=== PATIENT | male | born 1940 | race Caucasian/White ===

== ENCOUNTER → 2017-05-15 | Outpatient (CLI) | payer MEDICARE, BC ==
[~2017-05-15] MED LIST: ATOR10TA9 PO; COLC0.6T37 PO; DUTA0.5C PO; FLUT1DIS3 INH; GLIM1TAB PO; IBUP-1484 PO; INSU100I28 SQ-INSULIN; MONT10TA9 PO; RAMI5CAP PO; SITA1TAB PO; SITA1TAB5 PO
[2017-05-15 12:42] LABS: MICROSCOPIC NOT IND
[2017-05-15 12:44] LABS: CULTURE INDICATED? NO
[2017-05-15 12:52] LABS: ALANINE AMINOTRANSFERASE 30 U/L (12-78); ALBUMIN 3.6 g/dL (3.4-5.0); ANION GAP 9 mmol/L (5-15); CALCIUM 9.1 mg/dL (8.5-10.1); CHLORIDE 104 mmol/L (98-107)
[2017-05-15 12:55] LABS: ALKALINE PHOSPHATASE 76 U/L (45-117); BILIRUBIN,TOTAL 0.4 mg/dL (0.2-1.0); CREATININE 0.85 mg/dL (0.7-1.3); TOTAL PROTEIN 7.2 g/dL (6.4-8.2)
[2017-05-15 13:08] LABS: HEMOGLOBIN A1C 8.3 % (4.2-6.3)
== END | disposition home or self-care (01) ==
LOC: CFH 06:49
PROVIDERS: ATTEND Internal Medicine
DX: E11.21 Type 2 diabetes mellitus with diabetic nephropathy (principal); E78.5 Hyperlipidemia, unspecified; I10 Essential (primary) hypertension
CPT/HCPCS: 36415; 80053; 80061; 81003; 83036

== ENCOUNTER → 2017-10-29 | Outpatient (CLI) | payer MEDICARE, BC ==
[~2017-10-29] MED LIST changes: +EMPA25TA PO
[2017-10-29 07:41] LABS: ALANINE AMINOTRANSFERASE 31 U/L (12-78); ALBUMIN 3.8 g/dL (3.4-5.0); ANION GAP 6 mmol/L (5-15); CALCIUM 8.9 mg/dL (8.5-10.1); CHLORIDE 106 mmol/L (98-107); CREATININE 0.84 mg/dL (0.7-1.3)
[2017-10-29 07:44] LABS: ALKALINE PHOSPHATASE 71 U/L (45-117); BILIRUBIN,TOTAL 0.6 mg/dL (0.2-1.0); TOTAL PROTEIN 7.3 g/dL (6.4-8.2)
[2017-10-29 08:11] LABS: HEMOGLOBIN A1C 7.2 % (4.2-6.3)
== END | disposition home or self-care (01) ==
LOC: LAB 07:04
PROVIDERS: ATTEND Internal Medicine
DX: E11.9 Type 2 diabetes mellitus without complications (principal); E78.5 Hyperlipidemia, unspecified
CPT/HCPCS: 36415; 80053; 80061; 82043; 83036; 83704

== ENCOUNTER → 2017-11-09 | Outpatient (CLI) | payer MEDICARE, BC | END | disposition home or self-care (01) | LOC: CFH 15:06 | PROVIDERS: ATTEND Nurse Practitioner Family | DX: J34.9 Unspecified disorder of nose and nasal sinuses (principal); E11.9 Type 2 diabetes mellitus without complications; Z87.891 Personal history of nicotine dependence | CPT/HCPCS: 70486 ==

== ENCOUNTER → 2017-12-20 | Outpatient (CLI) | payer MEDICARE, BC ==
[~2017-12-20] MED LIST changes: -RAMI5CAP PO; +RAMI5CAP57 PO
== END | disposition home or self-care (01) ==
LOC: CFH 06:39
PROVIDERS: ATTEND Nurse Practitioner Family
DX: Z02.9 Encounter for administrative examinations, unspecified (principal)

== ENCOUNTER → 2018-01-23 | Outpatient (CLI) | payer MEDICARE, BC | END | disposition home or self-care (01) | LOC: CFH 06:45 | PROVIDERS: ATTEND Nurse Practitioner Family | DX: R76.8 Other specified abnormal immunological findings in serum (principal) | CPT/HCPCS: 87177; 87209 ==

== ENCOUNTER → 2018-05-01 | Outpatient (CLI) | payer MEDICARE, BC | END | disposition home or self-care (01) | LOC: CFH 07:59 | PROVIDERS: ATTEND Nurse Practitioner Family | DX: R91.1 Solitary pulmonary nodule (principal); J44.9 Chronic obstructive pulmonary disease, unspecified; R09.81 Nasal congestion; J34.89 Other specified disorders of nose and nasal sinuses | CPT/HCPCS: 36415; 71250; 86606 ==

== ENCOUNTER → 2018-05-09 | Outpatient (CLI) | payer MEDICARE, BC ==
[2018-05-09 12:46] LABS: CHLORIDE 106 mmol/L (98-107)
[2018-05-09 12:57] LABS: ALANINE AMINOTRANSFERASE 23 U/L (12-78); ALBUMIN 3.9 g/dL (3.4-5.0); ALKALINE PHOSPHATASE 90 U/L (45-117); ANION GAP 6 mmol/L (5-15); BILIRUBIN,TOTAL 0.4 mg/dL (0.2-1.0); CALCIUM 9.3 mg/dL (8.5-10.1); TOTAL PROTEIN 7.5 g/dL (6.4-8.2)
[2018-05-09 13:06] LABS: HEMOGLOBIN A1C 6.8 % (4.2-6.3)
== END | disposition home or self-care (01) ==
LOC: CFH 06:55
PROVIDERS: ATTEND Internal Medicine
DX: E55.9 Vitamin D deficiency, unspecified (principal); E11.9 Type 2 diabetes mellitus without complications; E78.5 Hyperlipidemia, unspecified
CPT/HCPCS: 36415; 80053; 80061; 82043; 82306; 82570; 83036; 83704

== ENCOUNTER → 2018-06-25 | Outpatient (CLI) | payer MEDICARE, BC | END | disposition home or self-care (01) | LOC: CFH 09:00 | PROVIDERS: ATTEND Nurse Practitioner Family | DX: R05 Cough (principal); R76.8 Other specified abnormal immunological findings in serum; R91.1 Solitary pulmonary nodule | CPT/HCPCS: 87015; 87070; 87077; 87102; 87116; 87186; 87205; 87206 ==

== ENCOUNTER → 2018-07-12 | Outpatient (CLI) | payer MEDICARE, BC | END | disposition home or self-care (01) | LOC: CFH 09:21 | PROVIDERS: ATTEND Nurse Practitioner Family | DX: R91.1 Solitary pulmonary nodule (principal) | CPT/HCPCS: 71250 ==

== ENCOUNTER 2018-10-02 06:46 | Outpatient (CLI) | payer MEDICARE, BC | END 2018-10-02 23:59 | disposition home or self-care (01) | LOC: CFH 06:46 | PROVIDERS: ATTEND Nurse Practitioner Family | DX: J45.909 Unspecified asthma, uncomplicated (principal); R76.8 Other specified abnormal immunological findings in serum; T78.40XD Allergy, unspecified, subsequent encounter | CPT/HCPCS: 36415; 82784; 82785 ==

== ENCOUNTER 2018-10-02 09:12 | Outpatient (CLI) | payer MEDICARE, BC | END 2018-10-02 23:59 | disposition home or self-care (01) | LOC: RAD 09:12 | PROVIDERS: ATTEND Nurse Practitioner Family | DX: R05 Cough (principal); R13.10 Dysphagia, unspecified; R91.1 Solitary pulmonary nodule | CPT/HCPCS: 36415; 71250; 74230; 82784; 82785 ==

== ENCOUNTER → 2019-02-25 | Outpatient (CLI) | payer MEDICARE, BC ==
[~2019-02-25] MED LIST changes: -IBUP-1484 PO; +IBUP-1902 PO
== END | disposition home or self-care (01) ==
LOC: RAD 09:55
PROVIDERS: ATTEND Nurse Practitioner Family
DX: R13.10 Dysphagia, unspecified (principal)
CPT/HCPCS: 74230

== ENCOUNTER 2019-08-15 07:45 | Outpatient (CLI) | payer MEDICARE, BC ==
[~2019-08-15 07:45] MED LIST changes: +MONT10TA11 PO; -MONT10TA9 PO
[2019-08-15 13:09] LABS: MEAN CORPUSCULAR HEMOGLOBIN 30.2 pg (27.5-34.5); MEAN CORPUSCULAR HGB CONC 32.8 g/dL (33.2-36.2); MEAN CORPUSCULAR VOLUME 92.2 fL (81-97); MEAN PLATELET VOLUME 9.8 fL (7.4-10.4); PLATELET COUNT 147 x10^3/uL (130-400); RED BLOOD COUNT 5.08 x10^6/uL (4.38-5.82); RED CELL DISTRIBUTION WIDTH 14.2 % (9.4-14.8)
[2019-08-15 14:34] LABS: CHLORIDE 106 mmol/L (98-107)
[2019-08-15 14:45] LABS: ALANINE AMINOTRANSFERASE 25 U/L (12-78); ALBUMIN 3.8 g/dL (3.4-5.0); ALKALINE PHOSPHATASE 79 U/L (45-117); ANION GAP 10 mmol/L (5-15); BILIRUBIN,TOTAL 0.4 mg/dL (0.2-1.0); CALCIUM 8.9 mg/dL (8.5-10.1); CHOLESTEROL, TOTAL 135 mg/dL (140-239); CREATININE 0.97 mg/dL (0.7-1.3); FREE T4 (FREE THYROXINE) 1.03 ng/dL (0.76-1.46); HDL CHOL % 25 % (26-37); HDL CHOLESTEROL (DIRECT) 34 mg/dL (40-60); LDL CHOLESTEROL,CALCULATED 59 mg/dL (54-169); LDL/HDL RATIO 1.7 (0.5-3.0); TOTAL PROTEIN 7.5 g/dL (6.4-8.2); TRIGLYCERIDES 209 mg/dL (50-200); VLDL CHOLESTEROL 42 mg/dL (0-25)
== END 2019-08-15 23:59 | disposition home or self-care (01) ==
LOC: CFH 07:45
PROVIDERS: ATTEND Internal Medicine
DX: E11.9 Type 2 diabetes mellitus without complications (principal); E78.5 Hyperlipidemia, unspecified; E03.9 Hypothyroidism, unspecified; D64.9 Anemia, unspecified
CPT/HCPCS: 36415; 80053; 80061; 82043; 83036; 84439; 84443; 85027

== ENCOUNTER → 2019-11-05 | Outpatient (CLI) | payer MEDICARE, BC ==
[2019-11-05 12:43] LABS: CHLORIDE 109 mmol/L (98-107)
[2019-11-05 13:05] LABS: ANION GAP 9 mmol/L (5-15); CALCIUM 9.1 mg/dL (8.5-10.1); CHOL/HDL RATIO 3.3; CHOLESTEROL, TOTAL 116 mg/dL (140-239); CREATININE 0.79 mg/dL (0.7-1.3); HDL CHOL % 30 % (26-37); HDL CHOLESTEROL (DIRECT) 35 mg/dL (40-60); LDL CHOLESTEROL,CALCULATED 57 mg/dL (54-169); LDL/HDL RATIO 1.6 (0.5-3.0); TRIGLYCERIDES 122 mg/dL (50-200); VLDL CHOLESTEROL 24 mg/dL (0-25)
== END | disposition home or self-care (01) ==
LOC: CFH 06:46
PROVIDERS: ATTEND Internal Medicine
DX: E11.9 Type 2 diabetes mellitus without complications (principal); E78.5 Hyperlipidemia, unspecified
CPT/HCPCS: 36415; 80048; 80061; 83036

== ENCOUNTER 2020-01-03 08:08 | Emergency (ER) | payer MEDICARE, BC ==
[~2020-01-03] VITALS: Ht 177.8 cm; Wt 80.5 kg
--- NOTE | 2020-01-03 09:02 | NUR ---
PT C/O TESTICLE SWELLING SINCE SUNDAY. PAIN STARTED TODAY. NO DIFFICULTY URINATING. PT ON SULFAMETH/TRIMETHOPRIM THAT WAS PRESCRIBED THIS WEEK.
--- NOTE | 2020-01-03 09:07 | NUR ---
DR ROBLES BEDSIDE
[2020-01-03] MEDS ORDERED: CEFTRIAXONE PMX 1GM/50ML 50 ML IV ONE (09:30)
[2020-01-03] MEDS ORDERED: SODIUM CHLORIDE FLUSH 10ML SYR IVF ONE (09:30)
[2020-01-03 09:40] LABS: BASOPHILS % (AUTO) 1 % (0-1); EOSINOPHILS % (AUTO) 4 % (1-7); LYMPHOCYTES % (AUTO) 15 % (22-44); MEAN CORPUSCULAR HGB CONC 33.1 g/dL (33.2-36.2); MEAN PLATELET VOLUME 8.7 fL (7.4-10.4); MONOCYTES % (AUTO) 11 % (2-9); NEUTROPHILS % (AUTO) 70 % (42-75); PLATELET COUNT 163 x10^3/uL (130-400); RED BLOOD COUNT 4.92 x10^6/uL (4.38-5.82); RED CELL DISTRIBUTION WIDTH 14.3 % (9.4-14.8)
[2020-01-03 09:41] LABS: MD NO
[2020-01-03 09:51] LABS: ALBUMIN 3.3 g/dL (3.4-5.0); ANION GAP 8 mmol/L (5-15); CALCIUM 9.1 mg/dL (8.5-10.1); CHLORIDE 106 mmol/L (98-107); CREATININE 0.97 mg/dL (0.7-1.3)
[2020-01-03] MEDS ORDERED: CEFTRIAXONE 1,000 MG ONE (10:39)
[2020-01-03 10:41] LABS: MICROSCOPIC INDICATED
[2020-01-03] MEDS ORDERED: LIDOCAINE-MPF 1%, 2ML ONE (10:41)
--- NOTE | 2020-01-03 10:56 | NUR ---
MULTIPLE UNSUCCESSFUL ATTEMPTS AT ESTABLISHING IV FOR ANTIBIOTICS. MADE AWARE AND ORDER CHANGED TO IM
--- NOTE | 2020-01-03 10:57 | NUR ---
PT MEDICATED PER MAR
[2020-01-03] MEDS ORDERED: CEFTRIAXONE 1,000 MG IM ONE (11:00)
[2020-01-03 11:09] VITALS: BP 127/95
== END 2020-01-03 11:39 | disposition home or self-care (01) ==
LOC: ED 08:51
DX: N45.1 Epididymitis (principal); N39.0 Urinary tract infection, site not specified; E11.9 Type 2 diabetes mellitus without complications; I10 Essential (primary) hypertension; E78.5 Hyperlipidemia, unspecified; Z90.89 Acquired absence of other organs; Z87.891 Personal history of nicotine dependence
CPT/HCPCS: 36415; 76870; 80048; 81001; 82040; 83036; 85025; 87077; 87086; 96372; 99284; J0696; 87186

== ENCOUNTER 2020-11-10 07:16 | Outpatient (CLI) | payer MEDICARE, BC ==
[~2020-11-10 07:16] MED LIST changes: -MONT10TA11 PO; +MONT10TA17 PO
[2020-11-10 07:53] LABS: ANION GAP 2 mmol/L (5-15); CALCIUM 9.3 mg/dL (8.5-10.1); CHLORIDE 106 mmol/L (98-107); CREATININE 0.79 mg/dL (0.7-1.3)
== END 2020-11-10 23:59 | disposition home or self-care (01) ==
LOC: LAB 07:16
PROVIDERS: ATTEND Internal Medicine
DX: E11.9 Type 2 diabetes mellitus without complications (principal)
CPT/HCPCS: 36415; 80048; 83036